=== PATIENT | female | born 1995 | race Caucasian/White ===

== ENCOUNTER → 2021-06-29 | Outpatient (CLI) | payer OTHER ==
[~2021-06-29] MED LIST: OMNICEF 300 MG300 MG PO
== END ==
LOC: KOH-I 16:20
DX: M54.2 Cervicalgia (principal); M54.9 Dorsalgia, unspecified; R05 Cough; M25.539 Pain in unspecified wrist
CPT/HCPCS: 71046; 72040; 72070; 72100